=== PATIENT | female | born 1990 | race Caucasian/White ===

== ENCOUNTER 2017-09-12 07:04 | Emergency (ER) | payer OTHER ==
[~2017-09-12] VITALS: Ht 162.6 cm; Wt 61.0 kg
[2017-09-12 07:53] LABS: BASOPHIL % 0.9 % (0-2); PLATELET COUNT 202 x10^3mcL (130-400); RED CELL DISTRIBUTION WIDTH 13.1 % (11.5-14.5)
[2017-09-12 08:30] VITALS: BP 125/69
== END 2017-09-12 08:30 | disposition home or self-care (01) ==
LOC: ED 07:04
PROVIDERS: Emergency Medicine
DX: O22.42 Hemorrhoids in pregnancy, second trimester (principal); Z3A.21 21 weeks gestation of pregnancy; Z88.8 Allergy status to other drugs, medicaments and biological substances
CPT/HCPCS: 36415

== ENCOUNTER 2018-04-20 23:47 | Emergency (ER) | payer OTHER ==
[~2018-04-20] VITALS: Ht 162.6 cm; Wt 66.7 kg
[2018-04-20 23:57] VITALS: Ht 162.6 cm; Wt 66.7 kg
[2018-04-21 00:37] LABS: BASOPHIL % 1.3 % (0-2); PLATELET COUNT 288 x10^3mcL (130-400); RED CELL DISTRIBUTION WIDTH 12.2 % (11.5-14.5)
[2018-04-21 04:09] VITALS: BP 116/71
== END 2018-04-21 04:10 | disposition short-term general hospital (02) ==
LOC: ED 23:47
PROVIDERS: Emergency Medicine
DX: R10.32 Left lower quadrant pain (principal); D36.7 Benign neoplasm of other specified sites; Z88.8 Allergy status to other drugs, medicaments and biological substances
CPT/HCPCS: J1885; Q0092